=== PATIENT | female | born 1950 | race Caucasian/White ===

== ENCOUNTER 2019-10-03 09:40 | Inpatient (IN) ==
[2019-10-03] MEDS ORDERED: ONDANSETRON INJ 2 MG/ML 2 ML VIAL IV STA (10:19)
[2019-10-03] MEDS ORDERED: SODIUM CHLORIDE 0.9% 1000ML 2,000 ML IV ONE (10:19)
--- NOTE | 2019-10-03 10:23 | Emergency Department Note ---
Impression & Plan Mass of ovary, Acute pericardial effusion, Pleural effusion, Fever, Acute UTI ED Provider Note NAME: MAURISIO STAPLETON AGE: 69 SEX: F : 1950 ARRIVES VIA: Walk-In INFORMANT: Patient ED PROVIDER(S): Bill Pollard DO CHIEF COMPLAINT: Abdominal pain and fevers HPI: Patient is a 69-year-old female who presents the ER for abdominal pain and fevers which has been going on since this past July. She notes that everything started Tuesday with bilateral belly pain and flank pain. She was seen by her PCP and placed on Bactrim for UTI. Her temperature at that time was 101. She was seen again on Tuesday and her urine culture was negative. Bactrim was stopped. Then started on Cipro and Flagyl as she was still having fevers and belly pain and they are concerned for diverticulitis. No CT performed. She had several episodes of vomiting on Tuesday. Pain has been persistent throughout her entire belly on bilateral flanks and back. She admits to 1 episode of vomiting today and one episode of diarrhea. Previous hysterectomy. Denies any dysuria urgency or frequency. She notes that she still feels hot but has not checked her temperature in the past 24 hours. ROS: See above HPI for pertinent positives & negatives. A total of 10 systems reviewed and were otherwise negative. PAST MEDICAL HISTORY:See Below PAST SURGICAL HISTORY:See Below FAMILY HISTORY:See Below SOCIAL HISTORY:See Below HOME MEDICATIONS:See Below ALLERGIES:See Below VITALS:See Below PHYSICAL EXAMINATION: GENERAL: Sitting up in bed, alert, disheveled, nontoxic EYE EXAM: normal conjunctiva. PERRL and EOM's grossly intact. OROPHARYNX: mucous membranes are dry NECK: supple, no nuchal rigidity, no adenopathy, non-tender LUNGS: Clear to auscultation. Normal chest wall mechanics HEART: no murmurs, S1 normal and S2 normal ABDOMEN: abdomen soft, non-tender, normo-active bowel sounds, no masses, no rebound or guarding. BACK: Back is symmetrical on inspection and there is no deformity, no midline tenderness, no CVA tenderness. SKIN: no rashes and no bruising UPPER EXTREMITIES: upper extremities are grossly normal. LOWER EXTREMITIES: No pitting edema. NEURO EXAM: Normal sensorium, cranial nerves II-XII grossly intact, normal speech, no gross weakness of arms, no gross weakness of legs. MEDICAL DECISION MAKING: Patient is a 17-year-old female who presents the ER for fevers and abdominal pain which is been going on since past Tuesday. Fevers were as high as 101. She notes that she woke up this morning and was drenched in sweat. She is on Cipro and Flagyl and being treated for diverticulitis. She still has abdominal pain. IV was established blood work was obtained. Labs show no significant leukocytosis or anemia. INR was unremarkable. BMP was unremarkable. Lactate was normal. Troponin was negative. LFTs and bilirubin were unremarkable. Initial UA was extremely contaminated. Previous culture from [facility] was reviewed on 09/28 and culture was negative. Repeated UA. CT abdomen pelvis was performed and showed a pericardial effusion as well as a pleural effusion and pelvic mass. Repeat UA does suggest UTI with nitrates being positive. With the belly pain and flank pain question if this could be a Pylo but uncertain at this time. With these findings and persistent fevers did discuss the case with the hospitalist for further evaluation. Patient was given 2 g of Rocephin. Discussed with Janice and will be admitted to Dr. Glynn Triage Nursing notes reviewed. Prior medical records reviewed Vital Signs: reviewed and remarkable for no significant abnormalities Differential diagnosis: Differential diagnosis includes etiologies such as sepsis, UTI, pneumonia, metabolic, electrolyte abnormalities, cardiac sources, intracerebral event, toxicologic, neurological, as well as others were entertained. ER treatment provided: See below Diagnostics interpreted by me: ECG: Sinus rhythm rate of 68 Normal axis No PVCs Normal QTC Cardiac Monitoring: An order was placed for continuous cardiac monitoring. The monitor shows a rate of 84 with sinus rhythm. Laboratory studies: As stated above and show below. Imaging studies: CT abdomen pelvis confirms pericardial effusion, pleural effusion and abdominal mass Consultation(s): Discussed with Janice from [facility] ED COURSE: Procedures: none Critical Care: None Past Med/Surg History Social History Smoking Status: Never smoker Feels Safe at Home: Yes Allergies Allergies Allergy/AdvReac Type Severity Reaction Status Date / Time No Known Allergies Allergy Verified 10/03/19 11:56 Home Meds Home Medications Medication Instructions Recorded Confirmed fluticasone propionate [Flonase] 2 spray INTRANASAL DAILY PRN #0 btl 11/28/11 10/03/19 omeprazole 20 mg PO QAM #0 cap 11/28/11 10/03/19 atorvastatin 20 mg PO PM 10/03/19 10/03/19 levothyroxine 88 mcg PO DAILYBB 10/03/19 10/03/19 lisinopril-hydrochlorothiazide 1 tab PO QAM 10/03/19 10/03/19 Results & Data (ED) Vital Signs Vital Signs - 24 hr 10/03/19 09:55 10/03/19 10:40 10/03/19 11:10 Temperature 36.4 C L Temperature Source Oral Pulse Rate 76 72 Pulse Rate [Left] Respiratory Rate 18 Respiratory Effort / Characteristics Non-Labored Spontaneous Non-Labored Spontaneous Respiratory Depth Normal Respiratory Pattern Regular Blood Pressure 100/69 Blood Pressure [Right Arm] Blood Pressure Mean 79 Blood Pressure Mean [Right Arm] Blood Pressure Position Sitting Blood Pressure Position [Right Arm] Pulse Oximetry 97 97 Oxygen Delivery Method Room Air Room Air Room Air Sepsis Recent Fever Within 48 Hours No Sepsis New/Unexplained Change in Mental Status N/A Sepsis Action Taken by Nursing No Action Required 10/03/19 12:39 10/03/19 14:07 Temperature Temperature Source Pulse Rate Pulse Rate [Left] 83 82 Respiratory Rate 16 16 Respiratory Effort / Characteristics Non-Labored Spontaneous Non-Labored Spontaneous Respiratory Depth Normal Respiratory Pattern Blood Pressure Blood Pressure [Right Arm] 120/82 121/77 Blood Pressure Mean Blood Pressure Mean [Right Arm] 94 91 Blood Pressure Position Blood Pressure Position [Right Arm] Lying Lying Pulse Oximetry 97 97 Oxygen Delivery Method Room Air Room Air Sepsis Recent Fever Within 48 Hours Sepsis New/Unexplained Change in Mental Status Sepsis Action Taken by Nursing Laboratory Data Result diagrams: 10/03/19 12:23 10/03/19 12:23 Lab Results 10/03/19 10/03/19 10/03/19 Range/Units 11:02 12:23 12:23 WBC 5.43 (4.8-10.8) K/uL RBC 4.41 (4.2-5.4) M/uL Hgb 13.1 (12.0-16.0) g/dL Hct 37.9 (37-47) % MCV 85.9 (80-100) fL MCH 29.7 (25-34) pg MCHC 34.6 (32-36) g/dL RDW Std Deviation 42.4 (36.4-46.3) fL RDW Coeff of Dimitrios 13.4 (11.5-14.5) % Plt Count 348 (130-400) K/uL MPV 11.7 H (7.4-10.4) fL Immature Gran % (Auto) 0.6 % Neut % (Auto) 74.5 % Lymph % (Auto) 15.5 % [place] % (Auto) 8.5 % Eos % (Auto) 0.7 % Baso % (Auto) 0.2 % Neut # (Auto) 4.05 (1.4-6.5) K/uL Lymph # (Auto) 0.84 L (1.2-3.4) K/uL [place] # (Auto) 0.46 (0.11-0.59) K/uL Eos # (Auto) 0.04 (0-0.5) K/uL Baso # (Auto) 0.01 (0-0.2) K/uL Immature Gran # (Auto) 0.03 H (0.00-0.02) K/uL PT 11.7 (9.0-12.0) Seconds INR 1.1 (0.9-1.1) APTT 25.9 (21.0-31.0) Seconds PTT Ratio 0.9 Sodium (136-145) mmol/L Potassium (3.5-5.1) mmol/L Chloride (98-107) mmol/L Carbon Dioxide (21-32) mmol/L Anion Gap (3-11) BUN (7-18) mg/dl Creatinine (0.6-1.2) mg/dl Est Cr Clr Drug Dosing ml/min Est GFR ( Amer) Est GFR (Non-Af Amer) BUN/Creatinine Ratio (10-20) Glucose (70-99) mg/dl Lactate (0.4-2.0) mmol/L Calcium (8.5-10.1) mg/dl Magnesium (1.8-2.4) mg/dl Total Bilirubin (0.2-1) mg/dl AST (15-37) U/L ALT (12-78) U/L Alkaline Phosphatase (45-117) U/L Troponin I (0-0.045) ng/ml Total Protein (6.4-8.2) gm/dl Albumin (3.4-5.0) gm/dl Globulin (2.5-4.0) gm/dl Albumin/Globulin Ratio (0.9-2) Urine Color Dark Yellow Urine Appearance Cloudy A (Clear) Urine pH 5.0 (4.5-7.5) Ur Specific [place] 1.025 (1.000-1.030) Urine Protein 1+ H (Negative) Urine Glucose (UA) Negative (Negative) Urine Ketones 3+ H (Negative) Urine Blood Trace H (Negative) Urine Nitrite Positive A (Negative) Urine Bilirubin Negative (Negative) Urine Urobilinogen Negative (Negative) Ur Leukocyte Esterase 1+ H (Negative) Urine WBC (Auto) 1-5 (0-5) /hpf Urine RBC (Auto) 10-30 H (0-4) /hpf U Hyaline Cast (Auto) 10-30 H (0-5) /lpf U Epithel Cells (Auto) >30 H (0-5) /lpf Urine Bacteria (Auto) Negative (Negative) Ur Renal Epithelial Cell Not Reportable Urine Crystals Calcium Oxalate A (None Prsent) Calcium Oxalate Crystal Present A (None Prsent) Urine Mucus Present A (None Prsent) 10/03/19 10/03/19 10/03/19 Range/Units 12:23 12:23 13:20 WBC (4.8-10.8) K/uL RBC (4.2-5.4) M/uL Hgb (12.0-16.0) g/dL Hct (37-47) % MCV (80-100) fL MCH (25-34) pg MCHC (32-36) g/dL RDW Std Deviation (36.4-46.3) fL RDW Coeff of Dimitrios (11.5-14.5) % Plt Count (130-400) K/uL MPV (7.4-10.4) fL Immature Gran % (Auto) % Neut % (Auto) % Lymph % (Auto) % [place] % (Auto) % Eos % (Auto) % Baso % (Auto) % Neut # (Auto) (1.4-6.5) K/uL Lymph # (Auto) (1.2-3.4) K/uL [place] # (Auto) (0.11-0.59) K/uL Eos # (Auto) (0-0.5) K/uL Baso # (Auto) (0-0.2) K/uL Immature Gran # (Auto) (0.00-0.02) K/uL PT (9.0-12.0) Seconds INR (0.9-1.1) APTT (21.0-31.0) Seconds PTT Ratio Sodium 135 L (136-145) mmol/L Potassium 4.2 (3.5-5.1) mmol/L Chloride 103 (98-107) mmol/L Carbon Dioxide 23 (21-32) mmol/L Anion Gap 9.0 (3-11) BUN 15 (7-18) mg/dl Creatinine 0.59 L (0.6-1.2) mg/dl Est Cr Clr Drug Dosing 69.9 ml/min Est GFR ( Amer) 109.2 Est GFR (Non-Af Amer) 94.2 BUN/Creatinine Ratio 25.9 H (10-20) Glucose 108 H (70-99) mg/dl Lactate 1.1 (0.4-2.0) mmol/L Calcium 9.4 (8.5-10.1) mg/dl Magnesium 2.0 (1.8-2.4) mg/dl Total Bilirubin 0.3 (0.2-1) mg/dl AST 30 (15-37) U/L ALT 31 (12-78) U/L Alkaline Phosphatase 90 (45-117) U/L Troponin I < 0.015 (0-0.045) ng/ml Total Protein 7.4 (6.4-8.2) gm/dl Albumin 3.5 (3.4-5.0) gm/dl Globulin 3.9 (2.5-4.0) gm/dl Albumin/Globulin Ratio 0.9 (0.9-2) Urine Color Dark Yellow Urine Appearance Clear (Clear) Urine pH 5.0 (4.5-7.5) Ur Specific [place] 1.027 (1.000-1.030) Urine Protein Trace H (Negative) Urine Glucose (UA) Negative (Negative) Urine Ketones 4+ H (Negative) Urine Blood Trace H (Negative) Urine Nitrite Positive A (Negative) Urine Bilirubin Negative (Negative) Urine Urobilinogen Negative (Negative) Ur Leukocyte Esterase 1+ H (Negative) Urine WBC (Auto) 1-5 (0-5) /hpf Urine RBC (Auto) 0-4 (0-4) /hpf U Hyaline Cast (Auto) 1-5 (0-5) /lpf U Epithel Cells (Auto) 5-10 H (0-5) /lpf Urine Bacteria (Auto) Negative (Negative) Ur Renal Epithelial Cell Urine Crystals (None Prsent) Calcium Oxalate Crystal Present A (None Prsent) Urine Mucus (None Prsent) Administered Medications Discontinued Medications Sodium Chloride (Nss 1000ml) 2,000 mls @ 999 mls/hr IV .Q2H1M ONE Stop: 10/03/19 12:19 Last Admin: 10/03/19 12:35 Dose: 999 mls/hr Documented by: [id number] Ondansetron HCl (Ondansetron Inj 2 Mg/Ml 2 Ml Vial) 4 mg IV NOW STA Stop: 10/03/19 10:20 Last Admin: 10/03/19 12:35 Dose: 4 mg Documented by: [id number] Discharge Plan Visit Data Chief Complaint: Abdominal Pain Stated Complaint: ABDOMINAL PAIN, NAUSEA, VOMITING ED Provider: Bill Pollard Discharge Problem: Mass of ovary, Acute pericardial effusion, Pleural effusion, Fever, Acute UTI Forms Stand Alone Forms: [facility] Prescriptions Prescriptions: No Action fluticasone propionate [Flonase] 50 mcg/actuation [place],Suspension 2 spray INTRANASAL DAILY PRN (Reason: seasonal allergies) Qty: 0 RF: 0 omeprazole 20 mg Tablet,Delayed Release (Dr/Ec) 20 mg PO QAM Qty: 0 RF: 0 atorvastatin 20 mg tablet 20 mg PO PM RF: 0 levothyroxine 88 mcg tablet 88 mcg PO DAILYBB RF: 0 lisinopril-hydrochlorothiazide 20-25 mg tablet 1 tab PO QAM RF: 0 Discharge Problem: Fever Qualifiers: Fever type: unspecified Qualified Code(s): R50.9 - Fever, unspecified
--- NOTE | 2019-10-03 10:52 | XRay Report ---
XR chest 1V portable CLINICAL HISTORY: SEPSIS COMPARISON STUDY: December 2011 FINDINGS: The cardiac and mediastinal contours are normal. There is no evidence of focal pulmonary co nsolidation. There is no evidence of failure. No pleural effusions are visualized.[Surgical clips are visualized within the left axillary region. There is stable superior left hilar retraction. Surgical clips also project over the left breast region. IMPRESSION: No active disease in the chest. ACT 112: Negative or not required by law. Electronically signed by: Allen Paris M.D. 10/03/2019 10:51 AM
[2019-10-03 11:17] LABS: Appearance Urine Cloudy (Clear); Bacteria Urine Automated Negative (Negative); Blood Urine Trace (Negative); Color Urine Dark Yellow; Epithelial Cell Urine Auto >30 /lpf (0-5); Glucose Urine UA Negative (Negative); Ketones Urine 3+ (Negative); Leukocyte Esterase Urine 1+ (Negative); Nitrite Urine Positive (Negative); Protein Urine 1+ (Negative); Specific Gravity Urine 1.025 (1.000-1.030); Urobilinogen Urine Negative (Negative)
[2019-10-03 11:25] LABS: Bilirubin Urine Negative (Negative); Ictotest Urine Negative (Negative)
[2019-10-03 11:32] LABS: Calcium Oxalate Crystals Urine Present (None Prsent); Mucus Urine Present (None Prsent)
--- NOTE | 2019-10-03 12:00 | Electrocardiogram Report ---
Test Reason : Blood Pressure : / mmHG Vent. Rate : 068 BPM Atrial Rate : 068 BPM P-R Int : 146 ms QRS Dur : 088 ms QT Int : 400 ms P-R-T Axes : 063 000 054 degrees QTc Int : 425 ms Normal sinus rhythm Normal ECG No previous ECGs available Confirmed by Carlos Valerio ([id number]) on 10/03/2019 12:00:30 PM Referred By: REFERRED SELF Confirmed By:Carlos Valerio
[2019-10-03 12:42] LABS: Basophils # (auto) 0.01 K/uL (0-0.2); Basophils % (auto) 0.2 %; Eosinophils # (auto) 0.04 K/uL (0-0.5); Eosinophils % (auto) 0.7 %; Hematocrit (blood only) 37.9 % (37-47); Hemoglobin 13.1 g/dL (12.0-16.0); Immature Granulocytes # (auto) 0.03 K/uL (0.00-0.02); Immature Granulocytes % (auto) 0.6 %; Lymphocytes # (auto) 0.84 K/uL (1.2-3.4); Lymphocytes % (auto) 15.5 %; Mean Corpuscular Hemoglobin 29.7 pg (25-34); Mean Corpuscular Hgb Conc 34.6 g/dL (32-36); Mean Corpuscular Volume 85.9 fL (80-100); Mean Platelet Volume 11.7 fL (7.4-10.4); Monocytes # (auto) 0.46 K/uL (0.11-0.59); Monocytes % (auto) 8.5 %; Neutrophils # (auto) 4.05 K/uL (1.4-6.5); Neutrophils % (auto) 74.5 %; Platelet Count 348 K/uL (130-400); RDW Coefficient of Variation 13.4 % (11.5-14.5); RDW Standard Deviation 42.4 fL (36.4-46.3); Red Blood Count 4.41 M/uL (4.2-5.4); White Blood Count 5.43 K/uL (4.8-10.8)
[2019-10-03 12:51] LABS: INR 1.1 (0.9-1.1); Partial Thromboplastin Ratio 0.9; Partial Thromboplastin Time 25.9 Seconds (21.0-31.0); Prothrombin Time 11.7 Seconds (9.0-12.0)
[2019-10-03 12:56] LABS: Alanine Aminotransferase 31 U/L (12-78); Albumin Level 3.5 gm/dl (3.4-5.0); Aspartate Aminotransferase 30 U/L (15-37); BUN Creatinine Ratio 25.9 (10-20); Blood Urea Nitrogen 15 mg/dl (7-18); Calcium 9.4 mg/dl (8.5-10.1); Carbon Dioxide 23 mmol/L (21-32); Chloride 103 mmol/L (98-107); Creatinine Clr Calc Pharmacy 69.9 ml/min; Est GFR (African American) 109.2; Est GFR (Non-African American) 94.2; Glucose 108 mg/dl (70-99); Potassium 4.2 mmol/L (3.5-5.1); Sodium 135 mmol/L (136-145)
[2019-10-03 12:59] LABS: Albumin Globulin Ratio 0.9 (0.9-2); Alkaline Phosphatase 90 U/L (45-117); Bilirubin,Total 0.3 mg/dl (0.2-1); Globulin 3.9 gm/dl (2.5-4.0); Total Protein 7.4 gm/dl (6.4-8.2); Troponin I < 0.015 ng/ml (0-0.045)
--- NOTE | 2019-10-03 13:15 | CT Scan Report ---
ABDOMEN AND PELVIS CT WITHOUT CONTRAST CT DOSE: 239.20 mGy.cm HISTORY: b/l lower abd pain w/ fevers TECHNIQUE: Multiaxial CT images of the abdomen and pelvis were performed without contrast. A dose lo wering technique was utilized adhering to the principles of ALARA. COMPARISON STUDY: None. FINDINGS: Trace right pleural effusion. Patchy densities within the right lower lobe posteriorly favo rs atelectasis from the pleural effusion. Trace pericardial effusion. No pneumoperitoneum. No pneumat osis. No fractures within the visualized osseous structures. A 1.2 cm hypodense lesion within the aidan tral liver. This favors a cyst. The unenhanced spleen, adrenal glands, and pancreas are unremarkable. A punctate nonobstructing stone within the left kidney. No right renal calculi. No definite ureteral calculi. Punctate calcification within the right deep pelvis on image 314 appears to be adjacent to the distal ureter. Normal bladder. No hydronephrosis. Multiple gallstones measuring up to 1.2 cm. No gallbladder wall thickening. No retroperitoneal lymphadenopathy. Normal caliber abdominal aorta. No p elvic free fluid. Prior hysterectomy. There are 3 cystic lesions within the right adnexa/ovary with t he largest measuring 3.4 cm. One of these is partially calcified. This could be pathologic in a postm enopausal female. Suboptimal evaluation for bowel pathology due to the lack of intravenous and oral c ontrast. However, there is no definite bowel wall thickening or obstruction. Normal appendix. IMPRESSION: 1. No definite bowel wall thickening or obstruction. 2. Normal appendix. 3. Left-sided nephrolithiasis. No definite ureteral stones. No hydronephrosis. 4. Trace pericardial effusion and a trace right pleural effusion. 5. Cholelithiasis. No gallbladder wall thickening. 6. There are 3 cystic lesions within the right adnexa which are likely ovarian. Dominant cyst measure s 3.4 cm. This could be pathologic in a postmenopausal female. Follow-up pelvic ultrasound in 3 month s is recommended to evaluate for stability/resolution. Gynecologic consultation also recommended. ACT 112: Negative or not required by law. Electronically signed by: Darshan Soares M.D. 10/03/2019 1:13 PM
[2019-10-03 13:30] LABS: Appearance Urine Clear (Clear); Bacteria Urine Automated Negative (Negative); Blood Urine Trace (Negative); Color Urine Dark Yellow; Glucose Urine UA Negative (Negative); Ketones Urine 4+ (Negative); Leukocyte Esterase Urine 1+ (Negative); Nitrite Urine Positive (Negative); Protein Urine Trace (Negative); RBC Urine Automated 0-4 /hpf (0-4); Specific Gravity Urine 1.027 (1.000-1.030); Urobilinogen Urine Negative (Negative)
[2019-10-03 13:57] LABS: Bilirubin Urine Negative (Negative); Ictotest Urine Negative (Negative)
[2019-10-03 13:59] LABS: Calcium Oxalate Crystals Urine Present (None Prsent)
[2019-10-03] MEDS ORDERED: cefTRIAXone SODIUM 2,000 MG/70 ML BAG IV STA (14:12)
[2019-10-03] MEDS ORDERED: DiphenhydrAMINE HCL 50 MG/ML VIAL IV STA (14:48)
--- NOTE | 2019-10-03 16:23 | History & Physical Report ---
Date of Service October 03, 2019 Assessment & Plan (1) Fever: Pt is 69 y/o F with PMH HTN, dyslipidemia, hypothyroidism, depression, left breast CA s/p radiation and chemo 1998 presented to ER with complaint of myalgias, low back and low abdomen discomfort and decreased appetite, intermittent CHAIREZ and neck stiffness for several weeks. Past week with fever, episode of vomiting and diarrhea today. Outpatient treated for possible UTI with Bactrim on 09/28/19. Had negative urine culture Outpatient treated for possible diverticulitis with Flagyl and Cipro on 09/30/19 In ER afebrile, P: 76, RR: 18, BP 100/69, 97% on room air. WBC: 5, lactate: 1.1. UA: + Nitrate, 1+ leuk esterase, 5-10 epithelial cells, no bacteria Noncontrast CT abdomen pelvis: Suboptimal evaluation for bowel pathology due to the lack of intravenous and oral contrast. However, there is no definite bowel wall thickening or obstruction. Normal appendix. Cholelithiasis. No gallbladder wall thickening. DDX: possible UTI, tick borne illness, sepsis -In ER no current CHAIREZ, nausea, vomiting, Full active ROM of neck. Less likely meningitis -Negative COVID 19 testing outpatient on 10/01/2019. -Blood cultures pending -In ER given 2L NSS, Zofran, Rocephin 2 g IV -We will obtain Lyme and anaplasmosis studies -IVF -Aztreonam empirically, doxycycline for possible tickborne illness -If has any recurrent diarrhea plan to obtain stool studies, C-diff -CBC, BMP in a.m. (2) Urticaria: Patient developed itching to extremities while in ER. In ER was given Benadryl IV which helped with itching Upon my evaluation patient with noted diffuse urticaria. Unsure of timing of urticaria with IV Rocephin given in ER. No shortness of breath, difficulty swallowing, tongue or lip edema. We will hold further Rocephin and placed on allergy list as possible allergy Continue Benadryl IV as needed, start Pepcid IV twice daily for now and p.o. Zyrtec daily Monitor closely (3) Adnexal cyst: CT ABD/PELVIS: There are 3 cystic lesions within the right adnexa which are likely ovarian. Dominant cyst measures 3.4 cm. -Obtain US pelvis to further evaluate -Will need further OBGYN evaluation, likely outpatient (4) Pericardial effusion: Trace pericardial effusion and a trace right pleural effusion noted on CT Abd/pelvis -Will obtain echo to further evaluate (5) HTN (hypertension): Stable -Continue lisinopril/HCTZ (6) Dyslipidemia: -Continue atorvastatin (7) Hypothyroidism: TSH: 0.3 -Continue levothyroxine (8) Depression: Recently tapered off Celexa that had been on for many years. Feels mood stable DVT Prophylaxis -Lovenox SQ Full Code as per discussion with pt Follows with Dr Farrukh Ruelas for routine care Pt was seen and care coordinated with Dr Michel. See addendum History of Present Illness Chief Complaint: Fever Primary Care Provider: Farrukh Ruelas, Pt is 69 y/o F with PMH HTN, dyslipidemia, hypothyroidism, depression, left breast CA s/p radiation and chemo 1998 presented to ER with complaint of fever. Patient tapered off Celexa approximately 5 weeks ago and stopped 2 weeks and to taper. After that time she noticed "brain fog", decreased appetite, overall just not feeling well. Reports moods have been stable. Past 3 weeks has been having low backache, urinary frequency, myalgias as well as bilateral lower abdominal discomfort describes as discomfort like menstrual cramps. She states she has been having some intermittent headaches and neck stiffness. 09/27/2019 patient noticed fever, chills urinary urgency in addition to her urinary frequency and continued low back pain. Was seen by PCP 09/28/2019 and started on Bactrim x3 days for suspected UTI. Urine culture came back negative. Seen by his PCP 09/30/2019 has had fever up to 101.8F, continued chills, back pain and muscle aches, nausea, vomiting, headache. She had negative COVID-19 testing on 10/01/2019. She was given Cipro and Flagyl for possible diverticulitis. Has not taken temperature today but continues with chills, decreased appetite, myalgias, arthralgias, headache, neck stiffness. She has been doing yoga which helps relieve the neck stiffness somewhat. Reports bilateral hands and feet felt cold but denies any paresthesias or extremity weakness. Reports usually weighs approximately 107-110 pounds however over the past several weeks has not been eating much and has noted several pound weight loss. Today had one episode of diarrhea and vomited. Patient states yesterday she noticed a rash to her left ankle which she thought looked like a bug bite. Today while in ER she has noticed some itching however was unaware of rash/hives until my examination. Is unsure on the timeframe of the itching/hives. Pt states after given medication for nausea In ER is longer nauseated and CHAIREZ has resolved. Denies any ill contacts, recent travel. Is unaware of any known tick bites, however gardens regularly. Denies hematemesis, hematochezia, vaginal bleeding, night sweats, dizziness, syncope, vision changes, CP, SOB, orthopnea, palpitations, cough, sore throat, choking, otalgia, rhinorrhea, extremity edema, dysuria, hematuria. Last mammogram 07/2019 was negative. Allergies Allergy/AdvReac Type Severity Reaction Status Date / Time ceftriaxone [From Rocephin] Allergy Hives Verified 10/03/19 16:39 Home Medications Home Medications Medication Instructions Recorded Confirmed Type fluticasone propionate [Flonase] 2 spray INTRANASAL DAILY PRN #0 btl 11/28/11 10/03/19 History omeprazole 20 mg PO QAM #0 cap 11/28/11 10/03/19 History atorvastatin 20 mg PO PM 10/03/19 10/03/19 History levothyroxine 88 mcg PO DAILYBB 10/03/19 10/03/19 History lisinopril-hydrochlorothiazide 1 tab PO QAM 10/03/19 10/03/19 History Past Med/Surg History Medical History (Updated 10/03/19 @ 17:01 by Celi Caceres PA-C) Breast cancer Left breast cancer s/p lumpectomy, radiation and chemo 1998 Depression Dyslipidemia HTN (hypertension) Hypothyroidism Surgical History (Updated 10/03/19 @ 16:45 by Celi Caceres PA-C) History of History of hysterectomy History of lumpectomy of left breast Family History (Updated 10/03/19 @ 16:45 by Celi Caceres PA-C) Other Cancer Hypertension Social History (Updated 10/03/19 @ 16:46 by Celi Caceres PA-C) Smoking Status: Never smoker Second Hand Exposure: No; Do You Dip or Chew Tobacco: No; Tobacco Cessation Education Requested by Patient: No Hx Alcohol Use: No Hx Substance Use: No Preferred Language: Setswana Communication Ability: Effective Certified Nutritionist Required: No Beliefs That Will Affect Care: None Current Living Situation: Alone Other Information That Helps Us Care for You: No Feels Safe at Home: Yes Review of Systems Review of Systems: All systems reviewed & are unremarkable except as noted in HPI & below Physical Exam Physical Exam: General: no distress, WDWN Head: normocephalic, atraumatic Eyes: PERRL, EOM's intact, conjunctiva non-injected, anicteric ENT: normal inspection external ears, nose, mucous membranes moist Neck: supple, trachea midline, non-tender, ROM intact Lungs: clear, no respiratory distress, no wheezing/rhonchi/rales CV: RRR, no murmur, no pretibial edema Abd: normal BS, soft, non-tender to palpation Ext: no cyanosis, no calf tenderness; ROM intact Neuro: A&O x 3, no focal deficits noted, normal affect; negative Kernig and Brudzinski Skin: warm, dry, +diffuse urticaria to bilateral upper and lower extremities, chest, abdomen, groin Results & Data Results & Data ([facility]) Vital Signs (Past 12 Hours) Vital Signs Temp Pulse Pulse Resp BP BP Pulse Ox 10/03/19 14:30 69 16 100 10/03/19 14:20 76 17 100 10/03/19 14:10 65 18 98 10/03/19 14:07 62 82 18 121/77 121/77 99 10/03/19 14:00 66 19 98 10/03/19 13:50 72 19 100 10/03/19 13:40 75 15 99 10/03/19 13:30 79 18 97 10/03/19 13:20 74 19 97 10/03/19 13:19 73 15 133/74 97 10/03/19 13:14 85 15 10/03/19 13:00 72 16 98 10/03/19 12:57 89 27 H 93 10/03/19 12:40 79 22 97 10/03/19 12:39 83 16 120/82 97 10/03/19 12:38 73 26 H 120/82 97 10/03/19 12:30 80 17 10/03/19 12:20 92 H 17 10/03/19 12:10 75 20 10/03/19 12:00 83 18 10/03/19 11:50 80 18 10/03/19 11:40 81 19 10/03/19 11:30 73 15 10/03/19 11:20 76 17 10/03/19 11:10 71 21 97 10/03/19 11:00 81 18 10/03/19 10:50 74 22 10/03/19 10:48 70 16 10/03/19 10:40 72 10/03/19 09:55 36.4 C L 76 18 100/69 97 Laboratory Results Short CBC 10/03/19 Range/Units 12:23 WBC 5.43 (4.8-10.8) K/uL Hgb 13.1 (12.0-16.0) g/dL Hct 37.9 (37-47) % Plt Count 348 (130-400) K/uL BMP 10/03/19 12:23 Sodium 135 L Potassium 4.2 Chloride 103 Carbon Dioxide 23 BUN 15 Creatinine 0.59 L Glucose 108 H Calcium 9.4 Cardiac Enzymes 10/03/19 Range/Units 12:23 Troponin I < 0.015 (0-0.045) ng/ml Liver Function 10/03/19 Range/Units 12:23 Total Bilirubin 0.3 (0.2-1) mg/dl AST 30 (15-37) U/L ALT 31 (12-78) U/L Alkaline Phosphatase 90 (45-117) U/L Albumin 3.5 (3.4-5.0) gm/dl Urine 10/03/19 10/03/19 Range/Units 11:02 13:20 Urine Color Dark Yellow Dark Yellow Urine Appearance Cloudy A Clear (Clear) Urine pH 5.0 5.0 (4.5-7.5) Ur Specific [place] 1.025 1.027 (1.000-1.030) Urine Protein 1+ H Trace H (Negative) Urine Glucose (UA) Negative Negative (Negative) Diagnostic Findings CXR: IMPRESSION: No active disease in the chest. CT ABD/PELVIS: IMPRESSION: 1. No definite bowel wall thickening or obstruction. 2. Normal appendix. 3. Left-sided nephrolithiasis. No definite ureteral stones. No hydronephrosis. 4. Trace pericardial effusion and a trace right pleural effusion. 5. Cholelithiasis. No gallbladder wall thickening. 6. There are 3 cystic lesions within the right adnexa which are likely ovarian. Dominant cyst measures 3.4 cm. This could be pathologic in a postmenopausal female. Follow-up pelvic ultrasound in 3 months is recommended to evaluate for stability/resolution. Gynecologic consultation also recommended. Code Status & VTE Plan VTE Prophylaxis Plan VTE Prophylaxis will be ordered: Yes Supervising Physician Co-Signing Physician Notes Attending Addendum: date of service 10/03/19 care coordinated with HUMPHREY Cui please refer to her notes for full details, I agree with her notes patient seen and examined, records reviewed by myself as well on exam, patient seen resting in bed, comfortable states she feels somewhat improved compared to admission abdominal pain resolved, no nausea, better appetite no active headache, shortness of breath, cough generalized pruritus resolved, hives also resolving no other symptoms at the time of my exam VS noted and reviewed oriented x 3, not in distress, speaks in sentences with no effort nor accessory muscle use normal rate, regular rhythm, no murmurs clear breath sounds bilaterally non distended, soft, nontender no bipedal edema, erythema, warmth no neuro deficits WBC 5.[address] abdomen/pelvis: 1. No definite bowel wall thickening or obstruction. 2. Normal appendix. 3. Left-sided nephrolithiasis. No definite ureteral stones. No hydronephrosis. 4. Trace pericardial effusion and a trace right pleural effusion. 5. Cholelithiasis. No gallbladder wall thickening. 6. There are 3 cystic lesions within the right adnexa which are likely ovarian. Dominant cyst measures 3.4 cm. This could be pathologic in a postmenopausal female. Follow-up pelvic ultrasound in 3 months is recommended to evaluate for stability/resolution. Gynecologic consultation also recommended. ASSESSMENT AND PLAN: FEVER, MYALGIAS R/O BACTEREMIA, LYME/ANAPLASMOSIS ff up blood and urine cultures ff up Lyme, Anaplasma screen empiric Aztreonam, Doxy DRUG RASH, SECONDARY TO CEFTRIAXONE developed generalized hives, pruritus after being Ceftri at the ER improved with Benadryl add Zyrtec daily Ceftri listed as drug allergy ABDOMINAL PAIN, ADNEXAL CYST CT abd/pelv:There are 3 cystic lesions within the right adnexa which are likely ovarian. Dominant cyst measures 3.4 cm. This could be pathologic in a postmenopausal female. Follow-up pelvic ultrasound in 3 months is recommended to evaluate for stability/resolution. Gynecologic consultation also recommended. -- Pelvic US ordered -- will need Office Equipment Mechanic referral other diagnoses and plan of care as per HUMPHREY Ramirez notes Trent Michel MD (1) Fever Fever type: unspecified Qualified Code(s): R50.9 - Fever, unspecified
[2019-10-03 16:57] LABS: Lyme Ab IgM w/WB Rflx Positive (Negative)
[2019-10-03 16:58] LABS: Lyme Ab IgG w/WB Rflx Positive (Negative)
[2019-10-03] MEDS ORDERED: POLYETHYLENE (MIRALAX) 17 GM PACK PO PRN (17:11)
[2019-10-03] MEDS ORDERED: DiphenhydrAMINE HCL 50 MG/ML VIAL IV PRN (17:11)
[2019-10-03] MEDS ORDERED: ACETAMINOPHEN 325 MG TAB PO PRN (17:11)
[2019-10-03] MEDS ORDERED: FLUTICASONE PROPIONATE NA SPR 16 GM BTL NAE PRN (17:11)
[2019-10-03] MEDS ORDERED: ONDANSETRON INJ 2 MG/ML 2 ML VIAL IV PRN (17:11)
[2019-10-03] MEDS: SODIUM CHLORIDE 0.9% 1000ML 1,000 ML IV SCH (17:21)
[2019-10-03] MEDS ORDERED: ENOXAPARIN INJ 40 MG/0.4 ML SYR SQ SCH (18:00)
[2019-10-03] MEDS: FAMOTIDINE 20 MG in SYRINGE 3 ML IV SCH (18:33)
[2019-10-03] MEDS: AZTREONAM 2,000 MG in DEXTROSE 5% 100 ML IV SCH (18:33)
[2019-10-03] MEDS: CETIRIZINE HCL 10 MG TABLET PO SCH (18:34)
--- NOTE | 2019-10-03 18:52 | Ultrasound Report ---
PELVIC ULTRASOUND CLINICAL HISTORY: Adnexal cyst. COMPARISON STUDY: CT of the abdomen and pelvis October 03, 2019. TECHNIQUE: Transabdominal and transvaginal sonography of the pelvis was performed. FINDINGS: The uterus is surgically absent. Left ovary measures 2.7 x 1.8 x 2.3 cm. There is color galindo w within the left ovary. There is a 1.3 cm left ovarian cyst. Three cystic lesions within the right a dnexa are noted. The largest measures 3.5 cm and contains a few mildly thickened septations. IMPRESSION: Three cystic right adnexal lesions, the largest of which is a 3.5 cm cystic lesion which contains mildly thickened septations. Although not overtly suspicious, these are pathologic in a post menopausal patient and gynecologic consultation is recommended. ACT 112: Negative or not required by law. Electronically signed by: Angelo Art M.D. 10/03/2019 6:51 PM
[2019-10-03] MEDS: DOXYCYCLINE HYCLATE 100 MG CAP PO SCH (20:43)
[2019-10-03] MEDS: ATORVASTATIN 20 MG TAB PO SCH (20:44)
[2019-10-03] MEDS: HEPARIN SOD 5,000 UNIT/0.5 ML VIAL SQ SCH (20:46)
[2019-10-04] MEDS: AZTREONAM 2,000 MG in DEXTROSE 5% 100 ML IV SCH ×3 (01:58→17:33)
[2019-10-04] MEDS: LEVOTHYROXINE SODIUM 88 MCG TABLET PO SCH (06:02)
[2019-10-04] MEDS: SODIUM CHLORIDE 0.9% 1000ML 1,000 ML IV SCH (06:03)
[2019-10-04 07:18] LABS: Hematocrit (blood only) 34.4 % (37-47); Hemoglobin 11.4 g/dL (12.0-16.0); Mean Corpuscular Hemoglobin 29.5 pg (25-34); Mean Corpuscular Hgb Conc 33.1 g/dL (32-36); Mean Corpuscular Volume 88.9 fL (80-100); Mean Platelet Volume 10.8 fL (7.4-10.4); Platelet Count 310 K/uL (130-400); RDW Coefficient of Variation 13.7 % (11.5-14.5); RDW Standard Deviation 44.7 fL (36.4-46.3); Red Blood Count 3.87 M/uL (4.2-5.4); White Blood Count 5.24 K/uL (4.8-10.8)
[2019-10-04 07:44] LABS: BUN Creatinine Ratio 15.4 (10-20); Calcium 8.4 mg/dl (8.5-10.1); Creatinine Clr Calc Pharmacy 58.3 ml/min; Est GFR (African American) 98.1; Est GFR (Non-African American) 84.6; Potassium 3.6 mmol/L (3.5-5.1)
[2019-10-04] MEDS: FAMOTIDINE 20 MG in SYRINGE 3 ML IV SCH (08:03)
[2019-10-04] MEDS: PANTOprazole 40 MG TAB PO SCH (08:04)
[2019-10-04] MEDS: HEPARIN SOD 5,000 UNIT/0.5 ML VIAL SQ SCH ×2 (08:04→20:42)
[2019-10-04] MEDS: CETIRIZINE HCL 10 MG TABLET PO SCH (08:04)
[2019-10-04] MEDS: LISINOPRIL/HCTZ 20/25MG 1 TAB PO SCH (08:04)
[2019-10-04] MEDS: DOXYCYCLINE HYCLATE 100 MG CAP PO SCH ×2 (08:06→20:42)
--- NOTE | 2019-10-04 19:19 | Hospitalist Progress Note ---
Date of Service October 04, 2019 Assessment & Plan (1) Fever: Unknown etiology Present on admission with myalgias, low back, abdomen discomfort, CHAIREZ fever vomiting and diarrhea today. Outpatient treated for possible UTI with Bactrim on 09/28/19. Had negative urine culture Outpatient treated for possible diverticulitis with Flagyl and Cipro on 09/30/19 UA positive for Nitrite, Leukocytes on admission CT abd/pelvis no definite bowel wall thickening or obstruction. Normal appendix. Cholelithiasis. No gallbladder wall thickening. peripheral smear showed no evidence for thick borne pathogen Negative COVID 19 testing outpatient on 10/01/2019. Blood cultures pending Western Lyme titer pending Continue Aztreonam empirically, doxycycline for possible tickborne illness Clinically improves (2) Urticaria: Patient developed itching to extremities while in ER possible related to Rocephin Received Benadryl IV which helped with itching Resolved (3) Adnexal cyst: CT ABD/PELVIS: There are 3 cystic lesions within the right adnexa which are likely ovarian. Dominant cyst measures 3.4 cm. US pelvis showed three cystic right adnexal lesions, the largest of which is a 3.5 cm cystic lesion which contains mildly thickened septations. 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 Ejection fraction 60 to 65%. Small, loculated anterior pericardial effusion with stranding to suggest chronicity Stable (5) HTN (hypertension): Stable Continue lisinopril/HCTZ (6) Dyslipidemia: Continue atorvastatin (7) Hypothyroidism: TSH: 0.3 Continue levothyroxine (8) Depression: Recently tapered off Celexa that had been on for many years. Feels mood stable DVT Prophylaxis Lovenox SQ Full Code Admission and Anticipated Discharge Date Admission Date: October 03, 2019 Subjective Pt was seen and examined Lying in bed with no distress with at bedside and daughter over the phone Pt said that she feels much better She said that she does not feels anymore achy Denies any chest pain, palpitation, dizziness and SOB Physical Exam Physical Exam: General- No acute distress Head- atraumatic Eyes- PERRL, EOMI, ENT- oropharynx clear Neck- supple, no JVD Lungs- clear to auscultation Heart- regular rhythm; no murmur Abdomen- normal bowel sounds, soft, nontender Extremities- no calf tenderness Neuro- alert, oriented x 3; PERRL, EOMI; no facial palsy; no dysarthria Skin- warm & dry Results & Data Results & Data ([facility]) Vital Signs (Past 12 Hours) Vital Signs Temp Pulse Pulse Resp BP Pulse Ox 10/04/19 16:06 83 10/04/19 15:41 36.7 C 76 18 117/73 97 10/04/19 11:00 36.7 C 80 16 117/77 99 10/04/19 07:33 63 10/04/19 07:16 36.5 C 66 18 110/68 97 (1) Fever Fever type: unspecified Qualified Code(s): R50.9 - Fever, unspecified
[2019-10-04] MEDS: ATORVASTATIN 20 MG TAB PO SCH (20:42)
[2019-10-04] MEDS: FAMOTIDINE 20 MG TAB PO SCH (20:42)
[2019-10-05] MEDS: AZTREONAM 2,000 MG in DEXTROSE 5% 100 ML IV SCH ×2 (02:44→12:38)
[2019-10-05] MEDS: LEVOTHYROXINE SODIUM 88 MCG TABLET PO SCH (06:19)
[2019-10-05] MEDS: FAMOTIDINE 20 MG TAB PO SCH (08:18)
[2019-10-05] MEDS: DOXYCYCLINE HYCLATE 100 MG CAP PO SCH (08:18)
[2019-10-05] MEDS: PANTOprazole 40 MG TAB PO SCH (08:18)
[2019-10-05] MEDS: LISINOPRIL/HCTZ 20/25MG 1 TAB PO SCH (08:19)
[2019-10-05] MEDS: HEPARIN SOD 5,000 UNIT/0.5 ML VIAL SQ SCH (08:19)
[2019-10-05] MEDS: CETIRIZINE HCL 10 MG TABLET PO SCH (08:19)
--- NOTE | 2019-10-05 13:06 | Hospitalist Progress Note ---
Date of Service October 05, 2019 Assessment & Plan (1) Fever: Mostly related to Lyme disease (Pt said that she always working in the wood/yard) Present on admission with myalgias, low back, abdomen discomfort, CHAIREZ fever vomiting and diarrhea today. Outpatient treated for possible UTI with Bactrim on 09/28/19. Had negative urine culture Outpatient treated for possible diverticulitis with Flagyl and Cipro on 09/30/19 UA positive for Nitrite, Leukocytes on admission CT abd/pelvis no definite bowel wall thickening or obstruction. Normal appendix. Cholelithiasis. No gallbladder wall thickening. peripheral smear showed no evidence for thick borne pathogen Negative COVID 19 testing outpatient on 10/01/2019. Blood cultures no growth Lyme IgG and IgM positive Western blot Lyme pending On IV Aztreonam empirically, doxycycline for possible tickborne illness Clinically improves significantly Will transition to Doxycycline to complete the course Follow up with your PCP for the Western blot lyme result (2) Urticaria: Patient developed itching to extremities while in ER possible related to Rocephin Received Benadryl IV which helped with itching Resolved (3) Adnexal cyst: CT ABD/PELVIS: There are 3 cystic lesions within the right adnexa which are likely ovarian. Dominant cyst measures 3.4 cm. US pelvis showed three cystic right adnexal lesions, the largest of which is a 3.5 cm cystic lesion which contains mildly thickened septations. 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 Ejection fraction 60 to 65%. Small, loculated anterior pericardial effusion with stranding to suggest chronicity Case discussed with cardiology and no further testing needing Asymptomatic Stable (5) HTN (hypertension): Stable Continue lisinopril/HCTZ (6) Dyslipidemia: Continue atorvastatin (7) Hypothyroidism: TSH: 0.3 Continue levothyroxine (8) Depression: Recently tapered off Celexa that had been on for many years. Feels mood stable DVT Prophylaxis Lovenox SQ Full Code Admission and Anticipated Discharge Date Admission Date: October 03, 2019 Subjective Pt was seen and examined Sitting in bed with no distress Pt said that she feels much better She said that she walked in the hallway with no distress Denies any chest pain, palpitation, dizziness and SOB Physical Exam Physical Exam: General- No acute distress Head- atraumatic Eyes- PERRL, EOMI, ENT- oropharynx clear Neck- supple, no JVD Lungs- clear to auscultation Heart- regular rhythm; no murmur Abdomen- normal bowel sounds, soft, nontender Extremities- no calf tenderness Neuro- alert, oriented x 3; PERRL, EOMI; no facial palsy; no dysarthria Skin- warm & dry Results & Data Results & Data ([facility]) Vital Signs (Past 12 Hours) Vital Signs Temp Pulse Pulse Pulse Resp BP Pulse Ox 10/05/19 11:12 36.7 C 73 16 148/89 H 98 10/05/19 10:58 37.0 C 64 54 L 16 125/80 97 10/05/19 07:46 92 H 10/05/19 07:14 37.0 C 64 16 125/80 97 10/05/19 04:11 36.5 C 63 20 111/70 97 (1) Fever Fever type: unspecified Qualified Code(s): R50.9 - Fever, unspecified
--- NOTE | 2019-10-07 08:37 | Discharge Summary ---
Date of Service October 05, 2019 Admission HPI Per Admitting Provider Pt is 69 y/o F with PMH HTN, dyslipidemia, hypothyroidism, depression, left breast CA s/p radiation and chemo 1998 presented to ER with complaint of fever. Patient tapered off Celexa approximately 5 weeks ago and stopped 2 weeks and to taper. After that time she noticed "brain fog", decreased appetite, overall just not feeling well. Reports moods have been stable. Past 3 weeks has been having low backache, urinary frequency, myalgias as well as bilateral lower abdominal discomfort describes as discomfort like menstrual cramps. She states she has been having some intermittent headaches and neck stiffness. 09/27/2019 patient noticed fever, chills urinary urgency in addition to her urinary frequency and continued low back pain. Was seen by PCP 09/28/2019 and started on Bactrim x3 days for suspected UTI. Urine culture came back negative. Seen by his PCP 09/30/2019 has had fever up to 101.8F, continued chills, back pain and muscle aches, nausea, vomiting, headache. She had negative COVID-19 testing on 10/01/2019. She was given Cipro and Flagyl for possible diverticulitis. Has not taken temperature today but continues with chills, decreased appetite, myalgias, arthralgias, headache, neck stiffness. She has been doing yoga which helps relieve the neck stiffness somewhat. Reports bilateral hands and feet felt cold but denies any paresthesias or extremity weakness. Reports usually weighs approximately 107-110 pounds however over the past several weeks has not been eating much and has noted several pound weight loss. Today had one episode of diarrhea and vomited. Patient states yesterday she noticed a rash to her left ankle which she thought looked like a bug bite. Today while in ER she has noticed some itching however was unaware of rash/hives until my examination. Is unsure on the timeframe of the itching/hives. Pt states after given medication for nausea In ER is longer nauseated and CHAIREZ has resolved. Denies any ill contacts, recent travel. Is unaware of any known tick bites, however gardens regularly. Denies hematemesis, hematochezia, vaginal bleeding, night sweats, dizziness, syncope, vision changes, CP, SOB, orthopnea, palpitations, cough, sore throat, choking, otalgia, rhinorrhea, extremity edema, dysuria, hematuria. Last mammogram 07/2019 was negative. Admission Exam Per Admitting Provider General: no distress, WDWN Head: normocephalic, atraumatic Eyes: PERRL, EOM's intact, conjunctiva non-injected, anicteric ENT: normal inspection external ears, nose, mucous membranes moist Neck: supple, trachea midline, non-tender, ROM intact Lungs: clear, no respiratory distress, no wheezing/rhonchi/rales CV: RRR, no murmur, no pretibial edema Abd: normal BS, soft, non-tender to palpation Ext: no cyanosis, no calf tenderness; ROM intact Neuro: A&O x 3, no focal deficits noted, normal affect; negative Kernig and Brudzinski Skin: warm, dry, +diffuse urticaria to bilateral upper and lower extremities, chest, abdomen, groin Principal Diagnosis Fever: Positive Lyme titer Urticaria : Adnexal cyst: Pericardial effusion: HTN (hypertension): Dyslipidemia: Depression: Hypothyroidism Discharge Exam General- No acute distress Head- atraumatic Eyes- PERRL, EOMI, ENT- oropharynx clear Neck- supple, no JVD Lungs- clear to auscultation Heart- regular rhythm; no murmur Abdomen- normal bowel sounds, soft, nontender Extremities- no calf tenderness Neuro- alert, oriented x 3; PERRL, EOMI; no facial palsy; no dysarthria Skin- warm & dry Discharge Data Allergies Allergy/AdvReac Type Severity Reaction Status Date / Time ceftriaxone [From Rocephin] Allergy Hives Verified 10/03/19 16:39 Consultations 10/03/19 14:13 ED Decision to Admit Stat Ordered Studies 10/03/19 12:30 CT abd pelvis wo con Stat 10/03/19 17:11 US pelvic complete Routine US transvaginal Routine PELVIC ULTRASOUND CLINICAL HISTORY: Adnexal cyst. COMPARISON STUDY: CT of the abdomen and pelvis October 03, 2019. TECHNIQUE: Transabdominal and transvaginal sonography of the pelvis was performed. FINDINGS: The uterus is surgically absent. Left ovary measures 2.7 x 1.8 x 2.3 cm. There is color flow within the left ovary. There is a 1.3 cm left ovarian cyst. Three cystic lesions within the right adnexa are noted. The largest measures 3.5 cm and contains a few mildly thickened septations. IMPRESSION: Three cystic right adnexal lesions, the largest of which is a 3.5 cm cystic lesion which contains mildly thickened septations. Although not overtly suspicious, these are pathologic in a postmenopausal patient and gynecologic consultation is recommended. ACT 112: Negative or not required by law. Electronically signed by: Angelo Art M.D. 10/03/2019 6:51 PM Dictated: 10/03/191848 Transcribed: 10/03/191848 PELVIC ULTRASOUND CLINICAL HISTORY: Adnexal cyst. COMPARISON STUDY: CT of the abdomen and pelvis October 03, 2019. TECHNIQUE: Transabdominal and transvaginal sonography of the pelvis was performed. FINDINGS: The uterus is surgically absent. Left ovary measures 2.7 x 1.8 x 2.3 cm. There is color flow within the left ovary. There is a 1.3 cm left ovarian cyst. Three cystic lesions within the right adnexa are noted. The largest measures 3.5 cm and contains a few mildly thickened septations. IMPRESSION: Three cystic right adnexal lesions, the largest of which is a 3.5 cm cystic lesion which contains mildly thickened septations. Although not overtly suspicious, these are pathologic in a postmenopausal patient and gynecologic consultation is recommended. ACT 112: Negative or not required by law. Electronically signed by: Angelo Art M.D. 10/03/2019 6:51 PM Dictated: 10/03/191848 Transcribed: 10/03/191848 ABDOMEN AND PELVIS CT WITHOUT CONTRAST CT DOSE: 239.20 mGy.cm HISTORY: b/l lower abd pain w/ fevers TECHNIQUE: Multiaxial CT images of the abdomen and pelvis were performed without contrast. A dose lowering technique was utilized adhering to the principles of ALARA. COMPARISON STUDY: None. FINDINGS: Trace right pleural effusion. Patchy densities within the right lower lobe posteriorly favors atelectasis from the pleural effusion. Trace pericardial effusion. No pneumoperitoneum. No pneumatosis. No fractures within the visualized osseous structures. A 1.2 cm hypodense lesion within the central liver. This favors a cyst. The unenhanced spleen, adrenal glands, and pancreas are unremarkable. A punctate nonobstructing stone within the left kidney. No right renal calculi. No definite ureteral calculi. Punctate calcification within the right deep pelvis on image 314 appears to be adjacent to the distal ureter. Normal bladder. No hydronephrosis. Multiple gallstones measuring up to 1.2 cm. No gallbladder wall thickening. No retroperitoneal lymphadenopathy. Normal caliber abdominal aorta. No pelvic free fluid. Prior hysterectomy. There are 3 cystic lesions within the right adnexa/ovary with the largest measuring 3.4 cm. One of these is partially calcified. This could be pathologic in a postmenopausal female. Suboptimal evaluation for bowel pathology due to the lack of intravenous and oral contrast. However, there is no definite bowel wall thickening or obstruction. Normal appendix. IMPRESSION: 1. No definite bowel wall thickening or obstruction. 2. Normal appendix. 3. Left-sided nephrolithiasis. No definite ureteral stones. No hydronephrosis. 4. Trace pericardial effusion and a trace right pleural effusion. 5. Cholelithiasis. No gallbladder wall thickening. 6. There are 3 cystic lesions within the right adnexa which are likely ovarian. Dominant cyst measures 3.4 cm. This could be pathologic in a postmenopausal female. Follow-up pelvic ultrasound in 3 months is recommended to evaluate for stability/resolution. Gynecologic consultation also recommended. ACT 112: Negative or not required by law. Electronically signed by: Darshan Soares M.D. 10/03/2019 1:13 PM Dictated: 10/03/19 1259 Transcribed: 10/03/19 1259 XR chest 1V portable CLINICAL HISTORY: SEPSIS COMPARISON STUDY: December 2011 FINDINGS: The cardiac and mediastinal contours are normal. There is no evidence of focal pulmonary consolidation. There is no evidence of failure. No pleural effusions are visualized.[Surgical clips are visualized within the left axillary region. There is stable superior left hilar retraction. Surgical clips also project over the left breast region. IMPRESSION: No active disease in the chest. ACT 112: Negative or not required by law. Electronically signed by: Allen Paris M.D. 10/03/2019 10:51 AM Dictated: 10/03/19 1050 Transcribed: 10/03/19 1050 Hospital Course (1) Fever: Mostly related to Lyme disease (Pt said that she always working in the wood/yard) Present on admission with myalgias, low back, abdomen discomfort, CHAIREZ fever vomiting and diarrhea today. Outpatient treated for possible UTI with Bactrim on 09/28/19. Had negative urine culture Outpatient treated for possible diverticulitis with Flagyl and Cipro on 09/30/19 UA positive for Nitrite, Leukocytes on admission CT abd/pelvis no definite bowel wall thickening or obstruction. Normal appendix. Cholelithiasis. No gallbladder wall thickening. peripheral smear showed no evidence for thick borne pathogen Negative COVID 19 testing outpatient on 10/01/2019. Blood cultures no growth Lyme IgG and IgM positive Western blot Lyme pending On IV Aztreonam empirically, doxycycline for possible tickborne illness Clinically improves significantly Will transition to Doxycycline to complete the course Follow up with your PCP for the Western blot lyme result (2) Urticaria: Patient developed itching to extremities while in ER possible related to Rocephin Received Benadryl IV which helped with itching Resolved (3) Adnexal cyst: CT ABD/PELVIS: There are 3 cystic lesions within the right adnexa which are likely ovarian. Dominant cyst measures 3.4 cm. US pelvis showed three cystic right adnexal lesions, the largest of which is a 3.5 cm cystic lesion which contains mildly thickened septations. Will need outpt DUMP OPERATOR follow up Repeat U/S in 3 months for resolution or stability (4) Pericardial effusion: Trace pericardial effusion and a trace right pleural effusion noted on CT Abd/pelvis Echo showed no segmental left ventricular wall motion abnormality. Ejection fraction 60 to 65%. Small, loculated anterior pericardial effusion with stranding to suggest chronicity Case discussed with cardiology and no further testing needing Asymptomatic Stable (5) HTN (hypertension): Stable Continue lisinopril/HCTZ (6) Dyslipidemia: Continue atorvastatin (7) Hypothyroidism: TSH: 0.3 Continue levothyroxine (8) Depression: Recently tapered off Celexa that had been on for many years. Feels mood stable DVT Prophylaxis Lovenox SQ Full Code Total Time Total Time Spent Total Time Spent (In Minutes): 35 minutes Total Time Includes: Examination of the Patient, Discharge Planning, Medication Reconciliation, Communication With Other Providers and Other Discharge Plan Discharge Items Patient Disposition: Home - Self-Care Reason For Visit: FEVER Discharge Diagnosis: Fever: Positive Lyme titer Urticaria (rahs): Adnexal cyst: Pericardial effusion: HTN (hypertension): Dyslipidemia: Depression: Hypothyroidism Activity: Resume your previous activity Non-emergency contact: Primary Care Provider Call non-emergency contact if: you have any medication questions and your temperature is above 101 Follow-up/Referrals: Farrukh Ruelas, [Primary Care Provider] - 10/09/19 11:00 am (Date & Time 10/09/2019 11:00 AM Provider Carlos Hernandez MD Department Family Practice [facility] ) Diet: Heart Healthy Addtl Attending Provider Instructions: Follow up with your primary care provider within 1 week Complete the course of the antibiotic with doxycycline Your physician will get an ultrasound in 3 months for the 3 cysts lesions seen on pelvic imaging. You will need a referral with gynecology for evaluation as well Lyme western blot pending (Your physician will review the result with you at your next appointment) You developed a rash after receiving ceftriaxone antibiotic Pending Studies at Discharge: Yes (Western Blot ) Stand-Alone Forms: [facility] [employer], Smoking Cessation Medications and DC Order Prescriptions: New doxycycline hyclate 100 mg Capsule 100 mg PO BID 10 Days Qty: 20 RF: 0 Continued fluticasone propionate 50 mcg/actuation [place],Suspension 2 spray INTRANASAL DAILY PRN (Reason: seasonal allergies) Qty: 0 RF: 0 omeprazole 20 mg Tablet,Delayed Release (Dr/Ec) 20 mg PO QAM Qty: 0 RF: 0 atorvastatin 20 mg tablet 20 mg PO PM RF: 0 levothyroxine 88 mcg tablet 88 mcg PO DAILYBB RF: 0 lisinopril-hydrochlorothiazide 20-25 mg tablet 1 tab PO QAM RF: 0 Discharge Orders: Discharge Order (Routine); Ordered 10/05/19 Ordered By: Heena Ruiz Admission Data Admit Date/Time: 10/03/19 15:07 Attending Provider: Heena Ruiz Admit Provider: Trent Michel Primary Care Provider: Farrukh Ruelas Other Providers: Trent Michel Other Interventions: Discharge Summary Assessment (RN) Last Done: 10/05/19 10:58
[2019-10-09 00:41] LABS: 18KDIGG Band NON-REACTIVE; 23KDIGG Band REACTIVE; 23KDIGM Band REACTIVE; 28KDIGG Band NON-REACTIVE; 30KDIGG Band NON-REACTIVE; 39KDIGG Band NON-REACTIVE; 39KDIGM Band NON-REACTIVE; 41KDIGG Band REACTIVE; 41KDIGM Band NON-REACTIVE; 45KDIGG Band NON-REACTIVE; 58KDIGG Band NON-REACTIVE; 66KDIGG Band NON-REACTIVE; 93KDIGG Band NON-REACTIVE; Lyme Antibodies, WB IgG NEGATIVE (NEGATIVE); Lyme Antibodies, WB IgM NEGATIVE (NEGATIVE)
--- NOTE | 2019-10-10 08:40 | Coding Query ---
CODING QUERY To promote full compliance with coding requirements relating to patient care, provider participation is requested in all cases of oracle drm consultant uncertainty. Please assist us with the question(s) below: Coding Question(s): Acute UTI is documented on the ER and the Discharge Summary documents Outpatient treated for possible UTI with Bactrim on 09/28/19 and had negative urine culture with documentation of UA positive for Nitrate, Leukocytosis on admission. Please specify below, regarding UTI. ( ) treated for Acute UTI during this admission (x ) No Acute UTI during this admission ( ) Other: Please Specify Physician's Response(s): Thank you Cynthia Campa Principal Diagnosis: "that condition established after study, to be chiefly responsible for occasioning the admission of the patient to the hospital for care." Co-Existing Principal Diagnosis: "when two or more diagnoses equally meet the criteria for principal diagnosis as determined by the circumstances of admission, diagnostic work up, and/or therapy provided, and the Alphabetic Index, Tabular List, or another coding guideline does not provide sequencing direction, any one of the diagnoses may be sequenced first." "When the physician has documented what appears to be a current diagnosis in the body of the record, but has not included the diagnosis in the final diagnostic statement, the physician should be asked whether the diagnosis should be added." (Source Coding [facility] 2 QTR90. p3-4) MAICO
== END 2019-10-05 14:54 | disposition home or self-care (01) | DRG 868 ==
LOC: ED 09:40 → 2W 15:07 → SUATTDRO 15:07 → 2W 16:07